=== PATIENT | male | born 1965 | race Two or more races ===

== ENCOUNTER 2025-09-18 09:11 | Inpatient (IN) | payer OTHER ==
[~2025-09-18] VITALS: Ht 172.7 cm; Wt 77.1 kg
--- NOTE | 2025-09-18 10:36 | NUR ---
PACIENTE MASCULINO, C/C ADORMECIMIENTO BRAZO Y PIERNA REBECCA, SE UBICA EN PASILLO PARA SSRE EVALUADO
--- NOTE | 2025-09-18 11:46 | NUR ---
SE ORIENTA PTE SOBRE TX A SEGUIR, EL MISMO REFIERE ENTENDER. SE LARRY MUESTRA DE LABS BAJO MEDIDAS ASEPTICAS
[2025-09-18 11:55] LABS: BASO % 1.2 % (0.1-1.2); EOS # 0.27 (0.04-0.54); EOS % 4.1 % (0.7-7.0); LYMPH # 1.58 (1.18-3.74); LYMPH % 24.1 % (19.3-53.1); MEAN PLATELET VOLUME 9.80 fl (9.4-12.4); MONO # 0.55 (0.24-0.82); MONO % 8.4 % (4.7-12.5); NEUT # 4.07 (1.56-6.13); NEUT % 62.0 % (34.0-71.1); RED CELL DISTRIBUTION WIDTH 13.1 % (11.6-14.4)
[2025-09-18 12:16] LABS: ALT/SGPT 34.0 U/L (12-78); AST/SGOT 21.0 U/L (15-37); BILIRUBIN TOTAL 1.03 mg/dL (0.3-1.2); BUN CREA RATIO 14.0 (7.0-25.0); CREATININE SERUM 1.0 mg/dL (0.70-1.30); GFR 76.75; GLOBULINA 3.4 G/DL (2.4-3.5); GLUCOSE FASTING 99.0 mg/dL (65-100); OSMOLALITY SERUM 285.0 MOSM/KG (275-295)
[2025-09-18] MEDS ORDERED: ASPIRIN 325 MG TABLET.EC PO ONE ×2 (14:00→14:05)
[2025-09-18] MEDS ORDERED: CLOPIDOGREL BISULFATE 75 MG TABLET PO ONE ×2 (15:30→16:46)
[2025-09-18] MEDS ORDERED: ATORVASTATIN CALCIUM 40 MG TABLET PO ONE (15:30)
--- NOTE | 2025-09-18 17:26 | NUR ---
SE ORIENTA A PACIENTE SOBRE TRATAMIENTO MEDICO, REFIERE ENTENDER. SE REALIZAN MUESTRAS DE LABORATORIO BAJO MEDIDAS ASEPTICAS. SE ADMINISTRA MEDICAMENTO BERNICE ORDEN MEDICA. SE UBICA A PACIENTE EN CAMA CON BARANDAS ELEVADAS POR SEGURIDAD Y SE CONECTA A MONITOR CARDIACO. PENDIENTE CONSULTA CON MEDICINA INTERNA.
[2025-09-18 17:47] LABS: INR 0.98
[2025-09-18] MEDS ORDERED: ONDANSETRON HCL 4 MG in DEXTROSE 5 % IN WATER 50 ML IV PRN (19:15)
[2025-09-18] MEDS ORDERED: ENALAPRILAT DIHYDRATE 1.25 MG/ML VIAL IV PRN (19:15)
[2025-09-18] MEDS ORDERED: ACETAMINOPHEN 325 MG TABLET PO PRN (19:15)
[2025-09-18] MEDS ORDERED: 0.9 % SODIUM CHLORIDE 1,000 ML IV SCH (19:15)
[2025-09-18 19:49] VITALS: BP 110/80
[2025-09-18 22:05] VITALS: BP 111/75
[2025-09-19 01:46] VITALS: BP 124/75; O2SAT 97
[2025-09-19] MEDS ORDERED: ACETAMINOPHEN 500 MG GEL..CAP PO PRN (07:30)
[2025-09-19 07:38] LABS: CHOL HDL RATIO 2.6 (0-5.0); HDL 58.0 mg/dl (40-60); LDL 72.0 mg/dl (0-130); TSH 0.632 uIU/mL (0.358-3.74); VLDL 21.0 (0-39)
[2025-09-19] MEDS ORDERED: ASPIRIN 81 MG TABLET.EC PO SCH (09:00)
[2025-09-19] MEDS ORDERED: ROSUVASTATIN CALCIUM 10 MG TABLET PO SCH (09:00)
[2025-09-19] MEDS ORDERED: FAMOTIDINE/PF 20 MG/2 ML VIAL IV SCH (09:00)
[2025-09-19] MEDS ORDERED: METOPROLOL SUCCINATE 25 MG TAB.SR.24H PO SCH ×2 (09:00)
[2025-09-19] MEDS ORDERED: ROSUVASTATIN CALCIUM 20 MG TABLET PO SCH (09:00)
[2025-09-19 15:49] LABS: URINE APPEARANCE Clear; URINE BILIRRUBIN Negative (NEGATIVE); URINE BLOOD Negative; URINE COLOR Yellow; URINE GLUCOSE Negative (NEGATIVE); URINE KETONE 15 (NEGATIVE); URINE LEUKOCYTE Negative; URINE NITRATE Negative; URINE PROTEIN Negative (NEGATIVE); URINE UROBILINOGEN 0.2 E.U./dl
[2025-09-19 15:52] LABS: URINE BACTERIA 5.9 uL (0.0-1933); URINE RBC 17.7 uL (0.0-20.8); URINE WBC 2.9 uL (0.0-23.2)
[2025-09-19 15:54] LABS: URINE CAST 0.00 uL (0.0-1.40); URINE EPITHELIAL CELLS 1.0 uL (0.0-38.8)
[2025-09-19 16:24] VITALS: O2SAT 89
[2025-09-19 17:33] VITALS: O2SAT 89
[2025-09-19 19:13] VITALS: O2SAT 98
[2025-09-19 20:10] VITALS: BP 120/73; O2SAT 98
[2025-09-20 00:21] VITALS: O2SAT 100
[2025-09-20 02:42] VITALS: BP 111/74; O2SAT 98
[2025-09-20 05:01] VITALS: O2SAT 97
[2025-09-20 08:51] VITALS: BP 122/75; O2SAT 99
[2025-09-20] MEDS ORDERED: ROSUVASTATIN CA20 MG PO (12:55)
[2025-09-20] MEDS ORDERED: ST. JOSEPH ASPI81 M2 PO (12:55)
[2025-09-20] MEDS ORDERED: CLOPIDOGREL BIS75 MG PO (12:55)
[2025-09-20] MEDS ORDERED: Crestor 10MG TABLET PO (12:56)
[2025-09-20] MEDS ORDERED: AVAPRO150 MG PO (12:56)
[2025-09-20] MEDS ORDERED: TOPROL XL25 M1 PO (12:57)
== END 2025-09-20 15:10 | disposition home or self-care (01) | DRG 69 ==
LOC: ER 09:12 → MEDJ 19:09 → MEDI 19:09 → MEDJ 20:00 → MEDI 09-19 11:28
PROVIDERS: General Practice; ADMIT Internal Medicine; ATTEND Internal Medicine
PROC: BW28ZZZ Computerized Tomography (CT Scan) of Head (ICD-10-PCS; principal; 2025-09-18)
PROC: B030ZZZ Magnetic Resonance Imaging (MRI) of Brain (ICD-10-PCS; 2025-09-18)
PROC: B345ZZZ Ultrasonography of Bilateral Common Carotid Arteries (ICD-10-PCS; 2025-09-18)
PROC: B246ZZZ Ultrasonography of Right and Left Heart (ICD-10-PCS; 2025-09-18)
PROC: 4A12X4Z Monitoring of Cardiac Electrical Activity, External Approach (ICD-10-PCS; 2025-09-19)
DX: G45.9 Transient cerebral ischemic attack, unspecified (principal); I10 Essential (primary) hypertension; R53.1 Weakness; R29.898 Other symptoms and signs involving the musculoskeletal system
CPT/HCPCS: 70551